=== PATIENT | female | born 1995 | race African-American/Black ===

== ENCOUNTER 2021-07-11 01:02 | Emergency (ER) | payer OTHER ==
[~2021-07-11] VITALS: Ht 170.2 cm; Wt 75.0 kg
[2021-07-11 01:12] VITALS: BP 135/75
--- NOTE | 2021-07-11 02:06 | NUR ---
PATIENT ROAD TESTED. AMBULATED WITHOUT ASSISTANCE AND VSS, AND ALERT AND ORIENTED TIMES 4
== END 2021-07-11 02:06 | disposition home or self-care (01) ==
LOC: ED 01:30
DX: F12.129 Cannabis abuse with intoxication, unspecified (principal); F12.10 Cannabis abuse, uncomplicated; Z72.9 Problem related to lifestyle, unspecified
CPT/HCPCS: 99283